=== PATIENT | male | born 1965 | race African-American/Black ===

== ENCOUNTER 2025-08-20 22:23 | Emergency (ER) | payer MEDICARE ==
[~2025-08-20] VITALS: Ht 175.3 cm; Wt 83.5 kg
[2025-08-21] MEDS ORDERED: MORPHINE SULFATE INJ 4 MG/ML DISP.SYRIN ONE (00:44)
[2025-08-21] MEDS: MORPHINE SULFATE INJ 2 MG/ML DISP.SYRIN IM ONE (00:55)
[2025-08-21 00:57] VITALS: BP 143/97; TEMP 97.9; O2SAT 99
== END 2025-08-21 00:57 | disposition home or self-care (01) ==
LOC: ER 22:35
DX: G89.29 Other chronic pain (principal); M54.9 Dorsalgia, unspecified; I10 Essential (primary) hypertension
CPT/HCPCS: 99283; 96372; J2270